=== PATIENT | female | born 1950 | race African-American/Black ===

== ENCOUNTER 2018-12-10 11:50 | Outpatient (CLI) | payer MEDICARE ==
[2018-12-10 13:49] LABS: Blood Urea Nitrogen 15 mg/dL (7-17)
--- NOTE | 2018-12-10 16:54 | Cat Scan Report ---
PROCEDURE: CT ANGIO ABD/FEMORAL ABD AORTA and bilateral lower extremity CT angiogram TECHNIQUE: Computerized axial tomographic angiography of the aortoiliac system with bilateral lower extremity runoff was performed after the IV injection of nonionic iodinated contrast including image processing.The image data was postprocessed using 2-dimensional multiplanar reformatted (MPR) and 3-d imensional (MIP and/or volume rendered) techniques. CT DOSE LENGTH PRODUCT: 1380.7 mGycm HISTORY: ESSENTIAL HYPERTENSION, CTA AORTIC ARCH COMPARISONS: None . FINDINGS: Upper abdominal aorta is not included on this exam. There does appear to be some mural thrombus visua lized in the abdominal aorta superiorly included on this exam in the region of the celiac trunk. Ther e is also minimal plaquing visualized in the infrarenal abdominal aorta.. The celiac trunk is only pa rtially visualized although appears patent. Superior mesenteric artery appears widely patent. Single renal arteries are visualized bilaterally. There is mild stenosis of the origin of the right main tayler al artery, approximately 30%. The left renal artery is widely patent. Inferior mesenteric artery appe ars patent. Minimal calcified and noncalcified plaquing visualized in the right common iliac artery and common fe moral artery without any significant stenosis. The right superficial femoral artery popliteal artery and proximal trifurcation vessels are widely patent. The distal trifurcation vessels are not opacifie d which may be due to timing of contrast. On the left side the common iliac artery and external iliac artery as well as the common femoral cat ry. Superficial femoral artery popliteal artery and visualized trifurcation vessels appear widely pat ent. Distal trifurcation vessels do not appear to be opacified which may be due to timing of contrast bolus. There is no evidence of aortic aneurysm on the images provided. Nonspecific subcentimeter lymph nodes seen in the retroperitoneum. No ascites is visualized. Visualized kidneys are unremarkable. Uterus and adnexa are unremarkable. Urinary bladder showed no focal abnormality. No acute bone abnormalities are seen. IMPRESSION: There is mild stenosis proximal right renal artery, approximately 30%. Right and left renal arteries otherwise appear widely patent. There does appear to be some mural thrombus in the proximal abdominal aorta although this is only par tially included on this exam. Minimal plaquing also seen infrarenal abdominal aorta. No aneurysm or o cclusion or dissection is visualized. Minimal atherosclerotic changes seen in the right common iliac arteries and right common femoral cat ry. 3 vessel runoff visualized bilaterally. The distal end of the three-vessel runoff is not opacifie d bilaterally which may be due to timing of contrast bolus. This document is electronically signed by Titi Villalba MD., December 10 2018 04:52:00 PM ET
== END 2018-12-10 11:51 | disposition home or self-care (01) ==
LOC: CT 11:50
PROVIDERS: ATTEND Internal Medicine Cardiovascular Disease
DX: I70.1 Atherosclerosis of renal artery (principal); I10 Essential (primary) hypertension
CPT/HCPCS: 36415; 75635; 82565; 84520; Q9967

== ENCOUNTER 2018-12-23 08:15 | Outpatient (CLI) | payer MEDICARE ==
[2018-12-23 09:27] LABS: Blood Urea Nitrogen 16 mg/dL (7-17)
--- NOTE | 2018-12-23 10:40 | Cat Scan Report ---
CTA CHEST WITH CONTRAST INDICATION : ABNORMAL RESULT OF OTHER CARDIOVASCULAR FUNCTION STUDY. No current symptoms per the pat ient. TECHNIQUE: Axial imaging performed through the chest, with contrast bolus timing set to maximize opa cification of the pulmonary arteries. 3-plane MIP reformatted images were obtained. All CT scans at this location are performed using CT dose reduction for ALARA by means of automated exposure control. 100 mL of intravenous contrast administered. COMPARISON: None FINDINGS: Bolus: Contrast bolus timing is adequate. PTE: No filling defect is present to suggest PTE. Mediastinum: Heart and great vessels appear normal. No pathologic mediastinal adenopathy. Lungs: The lungs are well-aerated with no evidence of parenchymal disease. No nodule, pleural effusi on or pneumothorax. There is marked elevation of the right hemidiaphragm by 3 rib levels compared to the left side. Upper abdomen: Limited imaging of the upper abdomen shows nothing acute. Bones: Degenerative changes in the spine with nothing acute. IMPRESSION: Negative for PTE. Clear lungs. Elevated right hemidiaphragm. Signer Name: Angelo Kitchen Jr, MD Signed: 12/23/2018 10:35 AM Workstation Name: [id number]
== END 2018-12-23 08:16 | disposition home or self-care (01) ==
LOC: CT 08:15
PROVIDERS: ATTEND Internal Medicine Cardiovascular Disease
DX: R94.39 Abnormal result of other cardiovascular function study (principal)
CPT/HCPCS: 36415; 71275; 82565; 84520; Q9967

== ENCOUNTER 2019-04-30 08:19 | Outpatient (CLI) | payer MEDICARE ==
[2019-04-30] MEDS ORDERED: SINCALIDE 5 MCG VIAL IV ONE ×2 (09:43→09:50)
[2019-04-30] MEDS ORDERED: WATER FOR INJ Sterile (PF) 10 ML ONE (09:43)
--- NOTE | 2019-04-30 12:08 | Nuclear Medicine Report ---
NM hepatobiliary w CCK INDICATION / CLINICAL INFORMATION: R63.4 WEIGHT LOSS/R10.13 ABDOMINAL PAIN EPIGASTRIC/K21.9GASTROESO. TRACER: Technetium 99m Choletec 5 mCi IV injection. COMPARISON: No relevant prior imaging study available. FINDINGS: Following injection of the above tracer, there was prompt uptake by the liver with rapid excretion in to the biliary tree, gallbladder and bowel. Following stimulation of the gallbladder, the ejection fr action was calculated at 26%. IMPRESSION: 1. Mildly diminished ejection fraction of 26%. 2. Gallbladder stimulation reportedly reproduced the patient's symptoms. Signer Name: Ki Contreras MD Signed: 04/30/2019 12:03 PM Workstation Name: [id number]
== END 2019-04-30 08:20 | disposition home or self-care (01) ==
LOC: NM 08:19
PROVIDERS: ATTEND Student in an Organized Health Care Education/Training Program
DX: K21.9 Gastro-esophageal reflux disease without esophagitis (principal)
CPT/HCPCS: 78227; A9537; J2805

== ENCOUNTER 2020-08-05 13:20 | Outpatient (CLI) | payer MEDICARE ==
[2020-08-05 13:53] LABS: Hematocrit 36.5 % (30.3-42.9); Hemoglobin 12.5 gm/dl (10.1-14.3); Mean Corpuscular HGB Conc 34 % (30-34); Mean Corpuscular Volume 96 fl (79-97); Platelet Count 254 K/mm3 (140-440)
[2020-08-05 14:13] LABS: Alanine Aminotransferase 69 units/L (7-56); Albumin 4.6 g/dL (3.9-5); Blood Urea Nitrogen 15 mg/dL (7-17); Calcium 9.6 mg/dL (8.4-10.2); Chol/HDL Ratio 2.82 %; HDL Cholesterol 58 mg/dL (40-59); Hemolysis Index 3; LDL Cholesterol,Direct 106 mg/dL (50-130)
[2020-08-05 14:27] LABS: BUN/Creatinine Ratio 25
[2020-08-05 15:12] LABS: ABG Base Excess -0.4 mmol/L (-2.0-3.0); ABG HCO3 25.1 mmol/L (20.0-26.0); ABG Methemoglobin 0.4 % (0.0-1.5); ABG Oxygen Saturation 96.2 % (95.0-99.0); ABG PCO2 44.3 mm Hg; ABG PH 7.371 pH Units (7.350-7.450); ABG PO2 84.3 mm Hg (80.0-90.0)
--- NOTE | 2020-08-05 15:59 | Cat Scan Report ---
CT chest w con INDICATION / CLINICAL INFORMATION: PURE HYPERCHOLESTEROLEMIA. TECHNIQUE: All CT scans at this location are performed using CT dose reduction for ALARA by means of automated e xposure control. COMPARISON: CTA chest dated 12/23/2018 FINDINGS: The right hemidiaphragm remains elevated. No significant parenchymal abnormality is seen in the lungs . No enlarged mediastinal or hilar lymph nodes are identified. The adrenal glands are normal. Other t silva degenerative change in the spine, no significant skeletal abnormality is identified. IMPRESSION: Persistent elevation of the right hemidiaphragm unchanged from prior examination dated 12/23/2018. No a cute findings or interval change from the prior exam Signer Name: Mateo Mcgill MD FACR Signed: 08/05/2020 3:55 PM Workstation Name: [id number]
--- NOTE | 2020-08-05 16:12 | XRay Report ---
CHEST 2 VIEWS INDICATION / CLINICAL INFORMATION: Elevated hemidiaphragm. COMPARISON: None available. FINDINGS: SUPPORT DEVICES: None. HEART / MEDIASTINUM: No significant abnormality. LUNGS / PLEURA: No significant pulmonary or pleural abnormality. No pneumothorax. ADDITIONAL FINDINGS: Elevated right hemidiaphragm IMPRESSION: The right hemidiaphragm is elevated. No definite acute disease Signer Name: Mateo Mcgill MD FACRita Signed: 08/05/2020 4:07 PM Workstation Name: [id number]
== END 2020-08-05 13:21 | disposition home or self-care (01) ==
LOC: LAB 13:20
PROVIDERS: ATTEND Internal Medicine
DX: R06.09 Other forms of dyspnea (principal); E78.00 Pure hypercholesterolemia, unspecified; Q79.1 Other congenital malformations of diaphragm; E11.9 Type 2 diabetes mellitus without complications; M47.814 Spondylosis without myelopathy or radiculopathy, thoracic region
CPT/HCPCS: 36415; 71046; 71260; 80053; 80061; 82803; 84436; 84443; 85027; Q9967

== ENCOUNTER 2020-09-28 08:08 | Outpatient (CLI) | payer MEDICARE ==
[2020-09-28 08:33] LABS: Hematocrit 37.3 % (30.3-42.9); Hemoglobin 12.9 gm/dl (10.1-14.3); Mean Corpuscular HGB Conc 35 % (30-34); Mean Corpuscular Volume 94 fl (79-97); Platelet Count 222 K/mm3 (140-440); Red Blood Count 3.95 M/mm3 (3.65-5.03); Red Cell Distribution Width 13.3 % (13.2-15.2)
[2020-09-28 08:57] LABS: Alanine Aminotransferase 45 units/L (7-56); Albumin 4.2 g/dL (3.9-5); BUN/Creatinine Ratio 24; Blood Urea Nitrogen 22 mg/dL (7-17); Calcium 9.5 mg/dL (8.4-10.2); HDL Cholesterol 59 mg/dL (40-59); Hemolysis Index 4; LDL Cholesterol,Direct 140 mg/dL (50-130)
--- NOTE | 2020-09-28 10:17 | XRay Report ---
CHEST 2 VIEWS INDICATION / CLINICAL INFORMATION: ELEVATED HEMOGLOBIN. COMPARISON: 08/05/20. FINDINGS: SUPPORT DEVICES: None. HEART / MEDIASTINUM: The heart size and pulmonary vasculature are normal. LUNGS / PLEURA: No significant pulmonary or pleural abnormality. No pneumothorax. ADDITIONAL FINDINGS: There is marked chronic elevation of the right hemidiaphragm, unchanged. There a re surgical clips in the right upper quadrant likely related to prior cholecystectomy. There is mild thoracic spondylosis. IMPRESSION: No acute abnormality or significant change. Signer Name: Beau Butts MD Signed: 09/28/2020 10:13 AM Workstation Name: [id number]
--- NOTE | 2020-09-28 12:10 | Cat Scan Report ---
CT CHEST WITH CONTRAST INDICATION / CLINICAL INFORMATION: Other forms of dyspnea. TECHNIQUE: Axial CT images were obtained through the chest after 100 cc IV contrast. Sagittal and coronal reform atted images. All CT scans at this location are performed using CT dose reduction for ALARA by means of automated exposure control. COMPARISON: 08/05/2020 FINDINGS: HEART: No significant abnormality. THORACIC AORTA: No significant abnormality. MEDIASTINUM and CAMILA: No significant abnormality. LUNGS: No acute air space or interstitial disease. There is persistent elevation of the left hemidia phragm by approximately 3-4 rib levels compared to the left side. PLEURA: No significant pleural effusion. No pneumothorax. SKELETAL SYSTEM: Stable mild thoracic spondylosis. UPPER ABDOMEN: No significant abnormality. ADDITIONAL FINDINGS: None. IMPRESSION: No change since 08/05/2020. Elevated right hemidiaphragm as described. No parenchymal lung disease is appreciated. Signer Name: Angelo Kitchen Jr, MD Signed: 09/28/2020 11:36 AM Workstation Name: [id number]
== END 2020-09-28 08:09 | disposition home or self-care (01) ==
LOC: CT 08:08
PROVIDERS: ATTEND Internal Medicine
DX: R06.09 Other forms of dyspnea (principal); Q79.1 Other congenital malformations of diaphragm; E11.9 Type 2 diabetes mellitus without complications; E78.00 Pure hypercholesterolemia, unspecified; Z79.899 Other long term (current) drug therapy
CPT/HCPCS: 36415; 36600; 71046; 71260; 80053; 80061; 82805; 84436; 84443; 85027; Q9967